=== PATIENT | male | born 1975 | race American Indian/Alaskan Native ===

== ENCOUNTER 2016-03-28 17:58 | Emergency (ER) | payer SELFPAY ==
[2016-03-28 18:12] VITALS: BP 141/91
--- NOTE | 2016-03-30 15:42 | ED Elopement Review ---
ED Pt Elopement review - Call Back decision Pt Call Back Decision: No action required
== END 2016-03-28 19:51 | disposition left against medical advice (07) ==
LOC: ED 17:58
DX: R06.02 Shortness of breath (principal); R07.89 Other chest pain; R42 Dizziness and giddiness; Z53.21 Procedure and treatment not carried out due to patient leaving prior to being seen by health care provider
CPT/HCPCS: 93005; 93010